=== PATIENT | male | born 1945 | race Two or more races ===

== ENCOUNTER 2018-01-01 13:39 | Outpatient (CLI) | payer MEDICARE, MEDICAID ==
[~2018-01-01 13:39] MED LIST: ASPIRIN EC81 MG ORAL; ATORVASTATIN CA40 MG ORAL; BP MEDS; EYE DROP; LINZESS145 MCG PO; LOSARTAN POTASS50 MG ORAL; LOTEMAX1 DROP OP; MIRALAX17 G2 ORAL; NEXIUM40 MG ORAL; PROLIA60 MG/1 ML SUBQ; PROSTATE MEDS; REFRESH OPTIVE1 EAC1 OP; TAMSULOSIN HCL0.4 MG ORAL; TOPROL XL100 MG ORAL; TRINTELLIX PO; XANAX0.5 MG ORAL
[2018-01-01 13:45] VITALS: BP 120/64
--- NOTE | 2018-01-01 16:27 | GI Initial Consult Note ---
History of Present Illness General Date patient seen: Jan 01, 2018 Referring physician: ESPERANZA Reason for Consultation: COLONOSCOPY Present Illness HPI 72 year old male patient with history of colon CA diagnosed in 2014, SIBO presents today with c/o of occasional generalized abdominal pain. In addition, has complaint of constipation; incomplete bowel movements. Had EGD/colonoscopy performed in 2016, see summary below. Denies any unintentional weight loss or changes in dietary habits. No signs of abuse or neglect. Patient is not fall risk. Home Meds Reported Medications Tamsulosin Hcl (TAMSULOSIN HCL*) 0.4 Mg Cap.er.24h, 0.4 MG ORAL BID, CAP 10/23/15 Esomeprazole Magnesium (NEXIUM) 40 Mg Capsule.dr, 40 MG ORAL DAILY, CAP 10/23/15 [Trintellix] No Conflict Check, 10 MG PO DAILY 10/23/15 Losartan Potassium* (LOSARTAN POTASSIUM*) 50 Mg Tablet, 50 MG ORAL DAILY, TAB 10/23/15 Denosumab (Prolia) 60 Mg/1 Ml Syringe, 60 MG SUBQ EVERY 6 MONTHS, EA 10/23/15 Atorvastatin Calcium* (ATORVASTATIN CALCIUM*) 40 Mg Tablet, 40 MG ORAL BEDTIME, TAB 10/23/15 Alprazolam* (XANAX*) 0.5 Mg Tablet, 0.5 MG ORAL DAILY, TAB 10/23/15 Carboxymethyl/Gly/Poly80/Pf (REFRESH OPTIVE ADVANCED DROPS) 1 Each Droperette, 1 EACH OP TID 10/27/14 Loteprednol Etabonate (Lotemax) 1 Drop Susp, 1 DROP OP QID 10/27/14 Metoprolol Succinate* (TOPROL XL*) 100 Mg Tab.er.24h, 100 MG ORAL BID, TAB 0 Refills 10/23/14 Aspirin Ec* (ASPIRIN EC*) 81 Mg Tablet.dr, 81 MG ORAL PRN, TAB 10/23/14 Linaclotide (LINZESS) 145 Mcg Capsule, 145 MCG PO PRN, CAP 10/23/14 Med list reviewed/reconciled: Yes Allergies: Coded Allergies: No Known Allergies (Unverified , 08/06/12) Patient History History Provided By: Patient, Medical Record PMH Narrative 1. History of colon cancer, needs followup. 2. Chronic acid reflux disease. s/p EGD/colonoscopy SUMMARY FINDINGS 2016: 1. Irregular mucosa in the mid esophagus, status post biopsy. 2. Possibly Jessica esophagitis, status post brush biopsy. 3. Small hiatal hernia. 4. Gastritis, status post biopsy. 5. Scattered diverticulosis of left colon. 6. Internal hemorrhoids. RECOMMENDATIONS: Follow up biopsies and treat accordingly. Social History: Denies: smoking, alcohol use, drug use, other Review of Systems All Other Systems: negative except mentioned in HPI Physical Exam T 98.1 BP 120/64 P 60 97 RA HT 5'7 WT 152 lbs Sp02 EP Interpretation: reviewed, normal General Appearance: well appearing, no apparent distress, alert Head: normocephalic EENT: PERRL/EOMI, normal ENT inspection Neck: supple Respiratory: normal breath sounds, no respiratory distress Cardiovascular: normal rate Gastrointestinal: normal inspection, non tender, soft, normal bowel sounds, non -distended Rectal: deferred Genitourinary: deferred Musculoskeletal: normal inspection, back normal Neurologic: normal inspection, alert, oriented x3, responsive Psychiatric: normal inspection, judgement/insight normal, memory normal Skin: normal inspection, normal color, no rash, warm/dry, palpation normal, well hydrated Lymphatic: normal inspection, no adenopathy GI: Plan Problems: (1) Colon cancer (2) GERD (gastroesophageal reflux disease) (3) Diverticulosis (4) Internal hemorrhoids (5) Abdominal bloating (6) Colonoscopy planned Plan Colonoscopy to be scheduled, will contact patient. - CLD & (Nulytely/Suprep/Movi-Prep) prep instructions given and acknowledged by patient. - NPO @ MD day prior procedure explained. Rx Xifaxan will follow with additional recs post procedure. Seen with Dr. Nicole. Thank you for this patient referral. The patient was seen and examined at bedside and all new and available data was reviewed in the patients chart. I agree with the above findings, impression and plan. (Patient seen earlier today. Signature stamp does not reflect patient encounter time.). - MD [facility] Jan 01, 2018 16:27
== END 2018-01-01 14:09 | disposition home or self-care (01) ==
LOC: PAN 13:39
DX: R10.84 Generalized abdominal pain (principal); C18.9 Malignant neoplasm of colon, unspecified; K59.00 Constipation, unspecified; K21.9 Gastro-esophageal reflux disease without esophagitis; K44.9 Diaphragmatic hernia without obstruction or gangrene; K29.70 Gastritis, unspecified, without bleeding; K57.30 Diverticulosis of large intestine without perforation or abscess without bleeding; K64.8 Other hemorrhoids
CPT/HCPCS: 99212

== ENCOUNTER 2019-08-28 14:29 | Outpatient (CLI) | payer MEDICARE, MEDICAID ==
--- NOTE | 2019-08-28 23:00 | Consultation ---
DATE OF CONSULTATION: 08/28/2019 CONSULTING PHYSICIAN: Lavon Nicole MD. CHIEF COMPLAINT: Abdominal pain. HISTORY OF PRESENT ILLNESS: This is a very pleasant 73-year-old male with past medical history of colon cancer. Last colonoscopy was in 2017. He is here because he has been having some epigastric abdominal pain, some symptoms of dysphagia to solid food. He says when he eats food, sometimes it gets stuck. He has to drink some water to push it down. He is concerning about some esophageal or stomach problems. PAST MEDICAL HISTORY: Colon cancer, status post resection. ALLERGIES: No known drug allergies. MEDICATIONS: Please see medication reconciliation list. SOCIAL HISTORY: Patient denies any tobacco, alcohol, or drug abuse. PHYSICAL EXAMINATION: GENERAL: A well-developed male, in no acute distress. VITAL SIGNS: Stable and afebrile. HEENT: Normocephalic, atraumatic. Sclerae anicteric. NECK: Supple. No evidence of obvious lymphadenopathy. CARDIOVASCULAR: Regular rate and rhythm. Plus S1-S2. LUNGS: Clear to auscultation bilaterally. ABDOMEN: Positive bowel sounds. Soft. There is a scar in the midline from prior abdominal surgeries. No rebound. No guarding. No peritoneal sign. EXTREMITIES: No cyanosis, no clubbing, no edema. ASSESSMENT AND PLAN: This is a pleasant 73-year-old male with history of colon cancer. Colonoscopy is due for January of this year, but at this time he is complaining of dysphagia, epigastric abdominal pain, nausea, and vomiting. Plan to do an EGD and also laboratories and ultrasound the same day. Patient to be scheduled for above. Lavon Nicole M.D. DR: Traci JOB#: [id number] CC:
== END 2019-08-28 16:29 | disposition home or self-care (01) ==
LOC: PAN 14:29
DX: R10.9 Unspecified abdominal pain (principal); Z85.038 Personal history of other malignant neoplasm of large intestine; R13.10 Dysphagia, unspecified
CPT/HCPCS: 99212

== ENCOUNTER 2019-09-09 07:41 | Day surgery (SDC) | payer MEDICARE, MEDICAID ==
[~2019-09-09] VITALS: Ht 172.7 cm; Wt 61.2 kg
[2019-09-09] VITALS (9 sets, daily range): BP systolic 123–151; BP diastolic 65–80
[2019-09-09] MEDS ORDERED: LR 1000ml 1,000 ML IVLG SCH (08:38)
--- NOTE | 2019-09-09 08:44 | Anethesia Preoperative Eval ---
Anesthesia Pre-op PMH/ROS General Date of Evaluation: Sep 09, 2019 Time of Evaluation: 08:39 Anesthesiologist: jude ASA Score: ASA 4 Mallampati Score Class I : Soft palate, uvula, fauces, pillars visible Class II: Soft palate, uvula, fauces visible Class III: Soft palate, base of uvula visible Class IV: Only hard plate visible Mallampati Classification: Class II Surgeon: joanne Diagnosis: abdominal pain Surgical Procedure: egd Anesthesia History: none Social History: smoking - nonsmoker Family History: no anesthesia problems Allergies: Coded Allergies: No Known Allergies (Unverified , 02/02/18) Medications: see eMAR Patient NPO?: Yes Past Medical History Cardiovascular: Reports: HTN Gastrointestinal/Genitourinary: Reports: GERD, other - bph, abdominal bloating , colon cancer, diverticulosis, esophageal candidiasis, internal hemorrhoids Neurologic/Psychiatric: Reports: depression/anxiety Musculoskeletal/Integumentary: Reports: other - osteoporsis Anesthesia Pre-op Phys. Exam Physician Exam Last Vital Signs Date Time Temp Pulse Resp B/P (MAP) Pulse Ox O2 Delivery O2 Flow Rate FiO2 09/09/19 08:33 Room Air 09/09/19 08:18 96.9 60 18 151/76 99 Constitutional: NAD Neurologic: CN 2-12 intact Cardiovascular: RRR Respiratory: CTA Gastrointestinal: S/NT/ND Airway Exam Mallampati Score: Class II MO: limited Neck: flexible TMD: 2fb Anesthesia Pre-op A/P Labs Microbiology Date/Time Source Procedure Growth Status 09/06/19 10:15 Nasopharynx Coronavirus COVID-19 PCR (TAMIE) - Final Complete Studies Pre-op Studies: EKG - sinus bradycardia Risk Assessment & Plan Assessment: asa4 Plan: mac Status Change Before Surgery: No Pre-Antibiotics Drug: Shaista Londono MD Sep 09, 2019 08:44
[2019-09-09] MEDS ORDERED: Midazolam 2mg/2ml Inj IVP PRN (08:45)
[2019-09-09] MEDS ORDERED: DiphenhydrAMINE 50mg/ml Inj IVP PRN (08:45)
[2019-09-09] MEDS ORDERED: Atropine Inj 1mg/10ml Syr IV PRN (08:45)
[2019-09-09] MEDS ORDERED: fentaNYL 100 mcg/2 mL IV PRN (08:45)
[2019-09-09] MEDS ORDERED: Lidocaine 1% MPF 10mg/ml 5ml ONE (09:00)
[2019-09-09] MEDS ORDERED: LR 1000ml ONE (09:00)
--- NOTE | 2019-09-09 09:19 | Pre-Procedure Note/Attestation ---
Pre-Procedure Note/Attestation Complete Prior to Procedure Planned Procedure: not applicable Procedure Narrative: egd Indications for Procedure Pre-Operative Diagnosis: abd pain Attestation I attest that I discussed the nature of the procedure; its benefits; risks and complications; and alternatives (and the risks and benefits of such alternatives ), prior to the procedure, with the patient (or the patient's legal labor service representative). I attest that, if there was a reasonable possibility of needing a blood transfusion, the patient (or the patient's legal labor service representative) was given the [facility] standardized written summary, pursuant to the Christopher Anderson Blood Safety Act ([place] Health and Safety Code # 1645, as amended). I attest that I re-evaluated the patient just prior to the surgery and that there has been no change in the patient's H&P, except as documented below: Lavon Nicole MD Sep 09, 2019 09:19
--- NOTE | 2019-09-09 09:19 | Short Stay Surgery H&P ---
History of Present Illness History of Present Illness Chief Complaint abd pain HPI Pamela Hopson is a 73 year old male who was admitted on for Abdominal Pain Patient History Allergies: Coded Allergies: No Known Allergies (Unverified , 02/02/18) PAST MEDICAL HISTORY: (1) Colonoscopy planned (2) GERD (gastroesophageal reflux disease) (3) Colon cancer (4) Abdominal bloating (5) Diverticulosis (6) Internal hemorrhoids (7) Esophageal candidiasis Medication History Scheduled Alprazolam* (Xanax*), 0.5 MG ORAL DAILY, (Reported) Aspirin Ec* (Aspirin Ec*), 81 MG ORAL PRN, (Reported) Atorvastatin Calcium* (Atorvastatin Calcium*), 40 MG ORAL BEDTIME, (Reported) Carboxymethyl/Gly/Poly80/Pf (Refresh Optive Advanced Drops), 1 EACH OP TID, ( Reported) Esomeprazole Magnesium (Nexium), 40 MG ORAL DAILY, (Reported) Linaclotide (Linzess), 145 MCG PO PRN, (Reported) Losartan Potassium* (Losartan Potassium*), 50 MG ORAL DAILY, (Reported) Loteprednol Etabonate (Lotemax), 1 DROP OP QID, (Reported) Metoprolol Succinate* (Toprol Xl*), 100 MG ORAL BID, (Reported) Tamsulosin Hcl (Tamsulosin Hcl*), 0.4 MG ORAL BID, (Reported) Review of Systems Cardiovascular: Reports: no symptoms Respiratory: Reports: no symptoms Skeletal: Reports: no symptoms Gastrointestinal: Reports: no symptoms Genitourinary: Reports: no symptoms Neurologic: Reports: no symptoms Endocrine: Reports: no symptoms Physical Exam Vital Signs Last Vital Signs Date Time Temp Pulse Resp B/P (MAP) Pulse Ox O2 Delivery O2 Flow Rate FiO2 09/09/19 08:33 Room Air 09/09/19 08:18 96.9 60 18 151/76 99 Skin: normal HENT: normal Heart: normal Lungs: normal Abdomen: normal Extremities: normal Plan Plan of Care egd Attestation Are the patient's medical conditions optimized for surgery? Attestation Response: yes Lavon Nicole MD Sep 09, 2019 09:19
--- NOTE | 2019-09-09 09:30 | Endoscopy Procedure Note ---
Endoscopy Procedure Note General Indication for Procedure: abd pain Procedures Performed: EGD Operative Findings/Diagnosis: gastritis Specimen: yes Pt Tolerated Procedure Well: Yes Estimated Blood Loss: none Anesthesia Anesthesiologist: clifton Anesthesia: MAC Inserted Devices Implant(s) used?: No GI Core Measures 50 yrs or older w/o bx or poly: Not Applicable 10yrs. F/U recommended: Not Applicable Lavon Nicole MD Sep 09, 2019 09:30
--- NOTE | 2019-09-09 09:54 | Immediate Post-Op Evaluation ---
Immediate Post-Op Evalulation Immediate Post-Op Evalulation Procedure: egd w/bx Date of Evaluation: Sep 09, 2019 Time of Evaluation: 09:42 IV Fluids: 300ml lr Blood Products: none Estimated Blood Loss: negligible Blood Pressure Systolic: 123 Blood Pressure Diastolic: 78 Pulse Rate: 57 Respiratory Rate: 18 O2 Sat by Pulse Oximetry: 100 Temperature (Fahrenheit): 97.0 Pain Score (1-10): 0 Nausea: No Vomiting: No Complications none Patient Status: awake, reacts, patent Hydration Status: adequate Drug: Shaista Londono MD Sep 09, 2019 09:54
--- NOTE | 2019-09-09 09:56 | 48 Hour Post Anesthesia Eval ---
Post Anesthesia Evaluation Procedure: egd w/bx Date of Evaluation: Sep 09, 2019 Time of Evaluation: 09:44 Blood Pressure Systolic: 128 0: 68 Pulse Rate: 50 Respiratory Rate: 18 Temperature (Fahrenheit): 97.0 O2 Sat by Pulse Oximetry: 100 Airway: patent Nausea: No Vomiting: No Pain Intensity: 0 Hydration Status: adequate Cardiopulmonary Status: stable Mental Status/LOC: patient returned to baseline Post-Anesthesia Complications: none Follow-up care needed: N/A Shaista Yee MD Sep 09, 2019 09:56
--- NOTE | 2019-09-09 10:30 | Procedure Note ---
DATE OF PROCEDURE: 09/09/2019 SURGEON: Lavon Nicole MD PROCEDURE: Upper endoscopy with biopsy. ANESTHESIA: Per Dr. Reyes. INSTRUMENT: Olympus adult flexible upper endoscope. INDICATION: Abdominal pain. REASON FOR PROCEDURE: The procedure, risks, benefits, and possible consequences, including hemorrhage, aspiration, perforation and infection, and alternative treatments, were explained to the patient/legal guardian by Dr. Lavon Nicole and the patient/legal guardian understood and accepted these risks. PROCEDURE IN DETAIL: After informed consent was obtained and the patient was adequately sedated, Olympus upper endoscope was advanced from mouth into the second portion of the duodenum and retroflexion was performed in the stomach. The patient has evidence of diffuse gastritis. Random biopsy from antrum was obtained to rule out H. pylori infection. The patient has evidence of some white patches in the esophagus suspicious for Jessica esophagitis. [place] biopsy from this area was obtained. The patient tolerated the procedure very well without any complication. SUMMARY OF FINDINGS: 1. Antral gastritis, status post biopsy. 2. Questionable Jessica esophagitis, status post brush biopsy. RECOMMENDATIONS: Follow biopsy results and treat accordingly. Lavon Nicole M.D. DR: GARFIELD JOB#: [id number] CC:
== END 2019-09-09 10:55 | disposition home or self-care (01) ==
LOC: GAS 07:41
DX: R10.9 Unspecified abdominal pain (principal); K29.50 Unspecified chronic gastritis without bleeding; K21.9 Gastro-esophageal reflux disease without esophagitis; I10 Essential (primary) hypertension; Z85.038 Personal history of other malignant neoplasm of large intestine; K57.90 Diverticulosis of intestine, part unspecified, without perforation or abscess without bleeding; R00.1 Bradycardia, unspecified; Z79.2 Long term (current) use of antibiotics; Z79.899 Other long term (current) drug therapy
CPT/HCPCS: 43235; 43239; 93005; 94003; J2704; J7120; 94150

== ENCOUNTER → 2019-09-24 | Outpatient (CLI) | payer MEDICARE, MEDICAID ==
[2019-09-24 10:55] LABS: BLOOD UREA NITROGEN 12 mg/dL (7-18)
--- NOTE | 2019-09-24 15:55 | Diagnostic Imaging Report ---
Clinical Indication: Bilateral upper abdominal pain Technique: Patient ingested oral contrast IV administration nonionic contrast. Venous phase spiral acquisition obtained through the abdomen and pelvis. Multiplanar reconstructions were generated. Total dose length product 237 mGycm. CTDIvol(s) 5 mGy. Dose reduction achieved using automated exposure control Comparison: none Findings: There are colonic diverticula. No evidence of diverticulitis. There is evidence of prior right hemicolectomy with ileocolic anastomosis at the level of the mid transverse colon. Ingested contrast has traversed the entirety of small bowel and reaches the proximal transverse colon just distal to the anastomosis. No small bowel distention or small bowel wall thickening. No free or loculated intraperitoneal gas or fluid is evident. The distal esophagus, stomach, duodenum are unremarkable. The liver demonstrates a subcentimeter low-attenuation lesion, probably a cyst, medially in segment 7, gallbladder, bile ducts, pancreas, spleen, adrenals, kidneys are unremarkable. No renal or ureteral calculi, hydronephrosis, or hydroureter. No pelvic mass or adenopathy. No retroperitoneal or mesenteric mass or adenopathy. The included lung bases are clear. There is bilateral L5 spondylolysis and resultant grade 2 L5 on S1 spondylolisthesis and secondary degenerative changes. Impression: No acute abnormality Evidence of prior right hemicolectomy Colonic diverticulosis Bilateral L5 spondylolysis, resultant grade grade 2 L5 on S1 spondylolisthesis and associated secondary degenerative change Incidental finding right lobe hepatic subcentimeter low-attenuation lesion, too small to characterize but most likely a benign simple cyst. The CT scanner at [facility] is accredited by the [employer] and the scans are performed using protocols designed to limit radiation exposure to as low as reasonably achievable to attain images of sufficient resolution adequate for diagnostic evaluation.
== END | disposition home or self-care (01) ==
LOC: CAT 10:38
DX: R10.12 Left upper quadrant pain (principal); R10.11 Right upper quadrant pain; K57.90 Diverticulosis of intestine, part unspecified, without perforation or abscess without bleeding; M47.816 Spondylosis without myelopathy or radiculopathy, lumbar region; M47.817 Spondylosis without myelopathy or radiculopathy, lumbosacral region
CPT/HCPCS: 36415; 74177; 82565; 84520; Q9967

== ENCOUNTER 2019-10-16 14:29 | Outpatient (CLI) | payer MEDICARE, MEDICAID ==
[2019-10-16 14:39] VITALS: BP 127/65
--- NOTE | 2019-10-16 15:58 | General Progress Note ---
Assessment/Plan Problem List: (1) Constipation ICD Codes: K59.00 - Constipation, unspecified SNOMED: 02992777 (2) Esophageal candidiasis ICD Codes: B37.81 - Candidal esophagitis SNOMED: 12265169 (3) GERD (gastroesophageal reflux disease) ICD Codes: K21.9 - GERD (gastroesophageal reflux disease) SNOMED: 651572563 (4) Colon cancer ICD Codes: C18.9 - Colon cancer SNOMED: 575589247 (5) Abdominal bloating ICD Codes: R14.0 - Abdominal distension (gaseous) SNOMED: 269988734 (6) Diverticulosis ICD Codes: K57.90 - Diverticulosis SNOMED: 312392402 (7) Internal hemorrhoids ICD Codes: K64.8 - Internal hemorrhoids SNOMED: 32921313 Assessment/Plan: EGD CLN CT all above reviewed post Xifaxan with some improvement add linzess 72 Subjective ROS Limited/Unobtainable: Yes Allergies: Coded Allergies: No Known Allergies (Unverified , 02/02/18) Objective Last 24 Hour Vital Signs Date Time Temp Pulse Resp B/P (MAP) Pulse Ox O2 Delivery O2 Flow Rate FiO2 10/16/19 14:39 97.8 52 16 127/65 (85) 97 General Appearance: alert EENT: normal ENT inspection Neck: supple Cardiovascular: normal rate Respiratory/Chest: decreased breath sounds Abdomen: normal bowel sounds, non tender, soft Extremities: non-tender Lavon Nicole MD Oct 16, 2019 15:57
== END 2019-10-16 16:29 | disposition home or self-care (01) ==
LOC: PAN 14:29
DX: K59.00 Constipation, unspecified (principal); B37.81 Candidal esophagitis; K21.9 Gastro-esophageal reflux disease without esophagitis; C18.9 Malignant neoplasm of colon, unspecified; R14.0 Abdominal distension (gaseous); K57.90 Diverticulosis of intestine, part unspecified, without perforation or abscess without bleeding; K64.8 Other hemorrhoids
CPT/HCPCS: 99212

== ENCOUNTER 2020-01-01 13:12 | Outpatient (CLI) | payer MEDICARE, MEDICAID ==
--- NOTE | 2020-01-01 15:39 | General Progress Note ---
Subjective ROS Limited/Unobtainable: Yes Allergies: Coded Allergies: No Known Allergies (Unverified , 02/02/18) Objective General Appearance: alert EENT: normal ENT inspection Neck: supple Cardiovascular: normal rate Respiratory/Chest: decreased breath sounds Abdomen: normal bowel sounds, non tender, soft Extremities: non-tender Assessment/Plan Assessment/Plan: Assessment/Plan Problem List: (1) Constipation ICD Codes: K59.00 - Constipation, unspecified SNOMED: 62373019 (2) Esophageal candidiasis ICD Codes: B37.81 - Candidal esophagitis SNOMED: 88481854 (3) GERD (gastroesophageal reflux disease) ICD Codes: K21.9 - GERD (gastroesophageal reflux disease) SNOMED: 870409425 (4) Colon cancer ICD Codes: C18.9 - Colon cancer SNOMED: 626537443 (5) Abdominal bloating ICD Codes: R14.0 - Abdominal distension (gaseous) SNOMED: 882120021 (6) Diverticulosis ICD Codes: K57.90 - Diverticulosis SNOMED: 000258931 (7) Internal hemorrhoids ICD Codes: K64.8 - Internal hemorrhoids SNOMED: 96664310 Assessment/Plan: EGD CLN CT all above reviewed post Xifaxan trial of Lavon Toure MD Jan 01, 2020 15:39
== END 2020-01-01 15:12 | disposition home or self-care (01) ==
LOC: PAN 13:12
DX: K59.00 Constipation, unspecified (principal); B37.81 Candidal esophagitis; K21.9 Gastro-esophageal reflux disease without esophagitis; C18.9 Malignant neoplasm of colon, unspecified; R14.0 Abdominal distension (gaseous); K57.90 Diverticulosis of intestine, part unspecified, without perforation or abscess without bleeding; K64.8 Other hemorrhoids
CPT/HCPCS: 99212